=== PATIENT | male | born 1940 | race Caucasian/White ===

== ENCOUNTER 2022-08-03 08:03 | Day surgery (SDC) | payer MEDICARE ==
[~2022-08-03] VITALS: Ht 185.4 cm; Wt 94.6 kg
[~2022-08-03 08:03] MED LIST: AMLO5 PO; ASPI325 PO; OMEP10ER; OMEPRAZOLE MAGN20 MG PO; Pravastatin Sod80 MG PO; TAMS.4ER PO; TIMO.5OPSO BOTHEYES; Valium5 MG PO; [UNRECOGNIZED DRUG - OTHER]
[2022-08-03] MEDS ORDERED: CALC.25 (09:14)
[2022-08-03] MEDS ORDERED: THERA-D2000 UNIT (09:14)
[2022-08-03] MEDS ORDERED: IRBE150 (09:14)
[2022-08-03] MEDS ORDERED: TIMDOROPSO (09:14)
[2022-08-03] MEDS ORDERED: Crestor40 MG (09:15)
[2022-08-03] MEDS ORDERED: PANT20 (09:15)
[2022-08-03] MEDS ORDERED: LATA.005SO (09:15)
[2022-08-03] MEDS ORDERED: TAMS.4ER (09:18)
[2022-08-03] MEDS ORDERED: CLOP75 (09:19)
== END 2022-08-03 11:25 | disposition home or self-care (01) ==
LOC: ORSCSDS 08:03
PROVIDERS: Internal Medicine Gastroenterology
PROC: 0DBK8ZX Excision of Ascending Colon, Via Natural or Artificial Opening Endoscopic, Diagnostic (ICD-10-PCS; principal; 2022-08-03 09:30)
PROC: 0DBL8ZX Excision of Transverse Colon, Via Natural or Artificial Opening Endoscopic, Diagnostic (ICD-10-PCS; principal; 2022-08-03 09:30)
DX: Z12.11 Encounter for screening for malignant neoplasm of colon (principal); D12.2 Benign neoplasm of ascending colon; D12.3 Benign neoplasm of transverse colon; K64.8 Other hemorrhoids; Z86.010 Personal history of colon polyps; Z80.0 Family history of malignant neoplasm of digestive organs; Z83.71 Family history of colonic polyps; K21.9 Gastro-esophageal reflux disease without esophagitis; I25.10 Atherosclerotic heart disease of native coronary artery without angina pectoris; Z86.73 Personal history of transient ischemic attack (TIA), and cerebral infarction without residual deficits; Z79.82 Long term (current) use of aspirin; Z79.02 Long term (current) use of antithrombotics/antiplatelets; Z79.899 Other long term (current) drug therapy; Z87.891 Personal history of nicotine dependence
CPT/HCPCS: 88305; J2704; J7120

== ENCOUNTER → 2022-09-04 | Outpatient (CLI) | payer MEDICARE ==
[~2022-09-04] MED LIST changes: +CALC.25; +CLOP75; +Crestor40 MG; +IRBE150; +LATA.005SO; +PANT20; +TAMS.4ER; +THERA-D2000 UNIT; +TIMDOROPSO
[2022-09-04 14:29] LABS: CHOL/HDL RATIO 2.3; Cholesterol 110 mg/dL (50-200); HDL Cholesterol 48 mg/dL (>39); Low Density Lipoprotein Chol 46 mg/dL (0-110); Triglycerides 79 mg/dL (30-160); Very Low Density Lipoprot Chol 15 mg/dL (6-32)
== END | disposition home or self-care (01) ==
LOC: LAB SHORT 10:45 → LAB 10:45
PROVIDERS: Family Medicine
DX: E78.49 Other hyperlipidemia (principal)
CPT/HCPCS: 80061

== ENCOUNTER 2023-07-31 09:07 | Day surgery (SDC) | payer MEDICARE ==
[~2023-07-31] VITALS: Ht 182.9 cm; Wt 94.0 kg
[2023-07-31] VITALS (8 sets, daily range): BP systolic 152–168; BP diastolic 63–97
[~2023-07-31 09:07] MED LIST changes: +Amlodipine Bes2.5 MG PO; -CALC.25; +CALC.25 PO; -CLOP75; +CLOP75 PO; -Crestor40 MG; +Crestor40 MG PO; +FAMO40 PO; -IRBE150; +IRBE150 PO; +LATA.005SO BOTHEYES; +LOKELMA10 GM PO; -PANT20; +PANT20 PO; -TAMS.4ER; -THERA-D2000 UNIT; +THERA-D2000 UNIT PO; -TIMDOROPSO; +TIMDOROPSO BOTHEYES
[2023-07-31] MEDS ORDERED: NS 2,000 ML IV ONE (09:38)
[2023-07-31] MEDS ORDERED: NS 500 ML IV ONE (09:40)
[2023-07-31] MEDS ORDERED: Midazolam HCl 1MG / ML 2ML Vial ONE ×2 (09:51→10:45)
[2023-07-31] MEDS ORDERED: NS 1,000 ML IV ONE (09:51)
[2023-07-31] MEDS ORDERED: FentaNYL Citrate 50 MCG/ML 2 ML Injection ONE ×2 (09:51→10:54)
[2023-07-31] MEDS ORDERED: CeFAZolin Sodium 2,000 MG VIAL ONE (10:56)
[2023-07-31] MEDS ORDERED: NS 100 ML IV ONE (10:58)
--- NOTE | 2023-07-31 12:02 | NUR ---
PT BACK TO RECOVERY ROOM VIA BED AFTER PROCEDURE. AWAKE AND ALERT, DENIES PAIN OR DISCOMFORT. PD CATH SITE CLEAN AND DRY, NO ACTIVE BLEEDING OR SWELLING. AT BEDSIDE, CALL LIGHT IN REACH.
--- NOTE | 2023-07-31 12:25 | NUR ---
DR CISNEROS AT BEDSIDE SPEAKING WITH PT AND SPOUSE ABOUT PROCEDURE RESULTS AND PLAN FOR FOLLOW UP CARE.
--- NOTE | 2023-07-31 12:40 | NUR ---
IV DC'D, CATH INTACT. PT AND SPOUSE VERBALIZED UNDERSTANDING OF DC INSTRUCTIONS AND FOLLOW UP INFO. PT OUT TO CAR VIA WHEELCHAIR, SPOUSE IS DRIVING PT HOME.
== END 2023-07-31 12:40 | disposition home or self-care (01) ==
LOC: MHTC 09:07
DX: T85.611A Breakdown (mechanical) of intraperitoneal dialysis catheter, initial encounter (principal); N18.6 End stage renal disease; I25.10 Atherosclerotic heart disease of native coronary artery without angina pectoris; Z86.73 Personal history of transient ischemic attack (TIA), and cerebral infarction without residual deficits; E78.5 Hyperlipidemia, unspecified; Z87.891 Personal history of nicotine dependence
CPT/HCPCS: 49418; 99152; 99153; C1750; C1769; C1887; C1894; J0690; J2250; J3010; J7030; J7040; Q9967

== ENCOUNTER 2023-09-20 08:20 | Day surgery (SDC) | payer MEDICARE ==
[~2023-09-20] VITALS: Ht 182.9 cm; Wt 90.7 kg
[~2023-09-20 08:20] MED LIST changes: +FLUO10 PO; +ONDA4ODT MM
[2023-09-20 08:49] VITALS: BP 134/102
[2023-09-20 08:50] VITALS: BP 161/90
[2023-09-20] MEDS ORDERED: Heparin Sodium 1000 Units/ML 10ML MDV ONE (10:24)
[2023-09-20] MEDS ORDERED: NS 1,000 ML IV ONE (10:24)
[2023-09-20] MEDS ORDERED: Heparin Sodium 10,000 Units/ML 1ML MDV ONE (10:24)
[2023-09-20] MEDS ORDERED: NS 250 ML IV ONE (10:25)
[2023-09-20] MEDS ORDERED: Midazolam HCl 1MG / ML 2ML Vial ONE ×2 (10:46→11:23)
[2023-09-20] MEDS ORDERED: FentaNYL Citrate 50 MCG/ML 2 ML Injection ONE ×2 (10:47→11:23)
[2023-09-20] MEDS ORDERED: Ondansetron HCl 2 MG / ML 2ML Vial ONE (10:54)
[2023-09-20] MEDS ORDERED: NS 100 ML IV ONE (11:17)
[2023-09-20] MEDS ORDERED: CeFAZolin Sodium 2,000 MG VIAL ONE (11:17)
[2023-09-20 12:15] VITALS: BP 151/86
--- NOTE | 2023-09-20 12:30 | NUR ---
PT AND VERBALIZED UNDERSTANDING OF WRITTEN AND VERBAL D/C INST. ABD DRSG AND R UPPER CHEST DRSG CDI. IV REMOVED. PT AMB TO THE BATHROOM /C SBA. TOLERATED WELL. PT TAKEN OUT OF THE HRT CENTER VIA W/C.
== END 2023-09-20 12:30 | disposition home or self-care (01) ==
LOC: MHTC 08:20
DX: T85.611D Breakdown (mechanical) of intraperitoneal dialysis catheter, subsequent encounter (principal); Y71.8 Miscellaneous cardiovascular devices associated with adverse incidents, not elsewhere classified; N18.6 End stage renal disease; R10.9 Unspecified abdominal pain; I25.10 Atherosclerotic heart disease of native coronary artery without angina pectoris; E78.5 Hyperlipidemia, unspecified; Z88.5 Allergy status to narcotic agent; Z88.8 Allergy status to other drugs, medicaments and biological substances; Z79.02 Long term (current) use of antithrombotics/antiplatelets; Z79.899 Other long term (current) drug therapy
CPT/HCPCS: 36561; 49422; 76937; 99152; 99153; C1750; C1769; C1894; J0690; J1644; J2250; J2405; J3010; J7030; J7050

== ENCOUNTER 2024-06-25 20:09 | Emergency (ER) | payer MEDICARE ==
[~2024-06-25] VITALS: Ht 185.4 cm; Wt 88.5 kg
[2024-06-25 20:40] LABS: BASOPHILS ABSOLUTE AUTO 0.06 K/mm3 (0.00-0.23); BASOPHILS PERCENT AUTO 1 % (0-2); EOSINOPHILS ABSOLUTE AUTO 0.07 K/mm3 (0.00-0.68); EOSINOPHILS PERCENT AUTO 1 % (0-6); Hematocrit 31.4 % (37.0-53.0); Hemoglobin 10.3 g/dL (13.5-17.5); IMMATURE GRAN ABSOLUTE AUTO 0.05 K/mm3 (0.00-0.10); IMMATURE GRAN PERCENT AUTO 1 % (0-1); LYMPHOCYTES ABSOLUTE AUTO 0.83 K/mm3 (0.84-5.20); LYMPHOCYTES PERCENT AUTO 10 % (21-46); MONOCYTES PERCENT AUTO 10 % (4-13); Mean Corpuscular HGB 30.7 pg (26.0-34.0); Mean Corpuscular HGB Conc 32.8 g/dL (31.5-36.5); Mean Corpuscular Volume 94 fL (80-100); Mean Platelet Volume 9.4 fL (9.1-12.4); NEUTROPHILS ABSOLUTE AUTO 6.52 K/mm3 (1.96-9.15); NEUTROPHILS PERCENT AUTO 78 % (41-73); Platelet Count 212 K/mm3 (150-400); RDW Coefficient Variation 13.2 % (11.7-14.2); RDW Standard Deviation 45.3 fL (35.1-46.3); Red Blood Cell Count 3.36 M/mm3 (4.30-5.90); White Blood Cell Count 8.33 K/mm3 (4.00-11.30)
[2024-06-25 21:04] LABS: Albumin, Blood 3.5 g/dL (3.4-5.0); Albumin/Globulin Ratio 0.6 (0.8-1.8); Bilirubin, Total 0.5 mg/dL (0.1-1.0); Bun/Creatinine Ratio 4.9 (12.0-20.0); Calcium, Blood 9.9 mg/dL (8.5-10.1); Creatinine, Blood 5.06 mg/dL (0.60-1.20); Globulin, Blood 5.4 g/dL (2.2-4.0); Magnesium, Blood 2.2 mg/dL (1.6-2.4); Potassium, Blood 3.2 mmol/L (3.5-5.5); Total Protein, Blood 8.9 g/dL (6.4-8.2)
[2024-06-25] MEDS ORDERED: Metoclopramide HCl 5MG / ML 2ML Vial IV ONE (21:10)
[2024-06-25 22:02] LABS: CORONAVIRUS COVID-19 AG Negative (NEGATIVE); INFLUENZA A AG Negative (NEGATIVE); INFLUENZA B AG Negative (NEGATIVE)
[2024-06-25 23:45] VITALS: BP 145/87
== END 2024-06-26 00:08 | disposition home or self-care (01) ==
LOC: ER 20:09
PROVIDERS: Student in an Organized Health Care Education/Training Program
DX: N18.6 End stage renal disease (principal); R07.89 Other chest pain; K21.9 Gastro-esophageal reflux disease without esophagitis; Z87.891 Personal history of nicotine dependence; Z86.73 Personal history of transient ischemic attack (TIA), and cerebral infarction without residual deficits; Z79.02 Long term (current) use of antithrombotics/antiplatelets; Z79.899 Other long term (current) drug therapy; Z88.5 Allergy status to narcotic agent; Z88.8 Allergy status to other drugs, medicaments and biological substances
CPT/HCPCS: 71045; 80053; 83735; 84484; 85025; 87428-QW; 93005; 93010; 96374; 99285-25; J2765

== ENCOUNTER → 2024-09-30 | Outpatient (CLI) | payer MEDICARE ==
[2024-09-30 14:41] LABS: CHOL/HDL RATIO 3.3; Cholesterol 137 mg/dL (50-200); HDL Cholesterol 42 mg/dL (>39); LDL/HDL RATIO 1.7; Low Density Lipoprotein Chol 72 mg/dL (0-110); Triglycerides 114 mg/dL (30-160); Very Low Density Lipoprot Chol 22 mg/dL (6-32)
== END | disposition home or self-care (01) ==
LOC: LAB SHORT 13:05 → LAB 13:05
PROVIDERS: Family Medicine
DX: I10 Essential (primary) hypertension (principal)
CPT/HCPCS: 80061

== ENCOUNTER 2024-12-05 11:35 | Emergency (ER) | payer MEDICARE ==
[~2024-12-05] VITALS: Ht 185.4 cm; Wt 88.0 kg
[2024-12-05 12:18] LABS: BASOPHILS ABSOLUTE AUTO 0.06 K/mm3 (0.00-0.23); BASOPHILS PERCENT AUTO 1 % (0-2); EOSINOPHILS ABSOLUTE AUTO 0.11 K/mm3 (0.00-0.68); EOSINOPHILS PERCENT AUTO 3 % (0-6); Hematocrit 30.9 % (37.0-53.0); Hemoglobin 9.6 g/dL (13.5-17.5); IMMATURE GRAN ABSOLUTE AUTO 0.02 K/mm3 (0.00-0.10); IMMATURE GRAN PERCENT AUTO 1 % (0-1); LYMPHOCYTES PERCENT AUTO 25 % (21-46); MONOCYTES ABSOLUTE AUTO 0.53 K/mm3 (0.16-1.47); MONOCYTES PERCENT AUTO 12 % (4-13); Mean Corpuscular HGB 29.2 pg (26.0-34.0); Mean Corpuscular HGB Conc 31.1 g/dL (31.5-36.5); Mean Corpuscular Volume 94 fL (80-100); Mean Platelet Volume 9.7 fL (9.1-12.4); NEUTROPHILS ABSOLUTE AUTO 2.62 K/mm3 (1.96-9.15); NEUTROPHILS PERCENT AUTO 59 % (41-73); Platelet Count 231 K/mm3 (150-400); RDW Coefficient Variation 15.2 % (11.7-14.2); RDW Standard Deviation 51.9 fL (35.1-46.3); Red Blood Cell Count 3.29 M/mm3 (4.30-5.90); White Blood Cell Count 4.44 K/mm3 (4.00-11.30)
[2024-12-05 13:01] LABS: Albumin, Blood 3.5 g/dL (3.4-5.0); Albumin/Globulin Ratio 0.7 (0.8-1.8); Bilirubin, Total 0.3 mg/dL (0.1-1.0); Bun/Creatinine Ratio 4.2 (12.0-20.0); Calcium, Blood 9.5 mg/dL (8.5-10.1); Creatinine, Blood 9.87 mg/dL (0.60-1.20); Globulin, Blood 4.8 g/dL (2.2-4.0); Potassium, Blood 4.2 mmol/L (3.5-5.5); Total Protein, Blood 8.3 g/dL (6.4-8.2)
[2024-12-05] MEDS ORDERED: MIDO5 PO (14:51)
[2024-12-05] MEDS ORDERED: ALBU8HFA2 INH (14:51)
[2024-12-05 16:00] VITALS: BP 154/96
[2024-12-05] MEDS ORDERED: LAVAP4L PO (16:53)
[2024-12-05] MEDS ORDERED: MAGCIT300 PO (16:53)
[2024-12-05] MEDS ORDERED: ADULT GLYCERIN1 EACH PR (16:53)
== END 2024-12-05 17:00 | disposition home or self-care (01) ==
LOC: ER 11:35
PROVIDERS: Student in an Organized Health Care Education/Training Program
DX: K59.00 Constipation, unspecified (principal); N18.6 End stage renal disease; Z88.8 Allergy status to other drugs, medicaments and biological substances; Z88.5 Allergy status to narcotic agent; Z79.899 Other long term (current) drug therapy; Z79.2 Long term (current) use of antibiotics; K21.9 Gastro-esophageal reflux disease without esophagitis; Z87.891 Personal history of nicotine dependence
CPT/HCPCS: 74177; 80053; 83690; 85025; 99284-25; Q9967

== ENCOUNTER 2025-01-06 11:08 | Day surgery (SDC) | payer MEDICARE ==
[2025-01-06] VITALS (10 sets, daily range): BP systolic 109–144; BP diastolic 81–108
[~2025-01-06] VITALS: Ht 185.4 cm; Wt 87.1 kg
[~2025-01-06 11:08] MED LIST changes: +ADULT GLYCERIN1 EACH PR; +ALBU8HFA2 INH; +COMPAZINE10 MG PO; +LAVAP4L PO; +MAGCIT300 PO; +MIDO5 PO; +PANT40 PO; +ROPI1 PO; +VITAMIN B COMP1 EAC1 PO
[2025-01-06] MEDS ORDERED: NS 1,000 ML IV ONE ×2 (11:27→11:42)
[2025-01-06] MEDS ORDERED: MIDO5 PO (11:39)
[2025-01-06] MEDS ORDERED: Heparin Sodium 1000 Units/ML 10ML MDV ONE ×2 (11:42→13:34)
[2025-01-06] MEDS ORDERED: FentaNYL Citrate 50 MCG/ML 2 ML Injection ONE (11:55)
[2025-01-06] MEDS ORDERED: Midazolam HCl 1MG / ML 2ML Vial ONE (11:55)
[2025-01-06] MEDS ORDERED: Ondansetron HCl 2 MG / ML 2ML Vial ONE (12:02)
[2025-01-06] MEDS ORDERED: Nitroglycerin 2 MG/20 ML BTL ONE (13:20)
--- NOTE | 2025-01-06 15:16 | NUR ---
2 cc air released from tr band om l wrist. no bleeding noted
--- NOTE | 2025-01-06 15:24 | NUR ---
all remaining air is now out of tr band, no bleeding or hematoma noted.
--- NOTE | 2025-01-06 15:40 | NUR ---
pt sitting up eating sandwhich at this time. denies any c/o's.
--- NOTE | 2025-01-06 16:04 | NUR ---
tr band off, site cleansed and cloth dot placed. Armboard applied to left wrist as reminder not to use it.
--- NOTE | 2025-01-06 16:28 | NUR ---
Pt discharge instructions went over with pt and son, both verbalize understanding of instructions. saline lock removed with catheter intact, pressure dressing applied. pt to priavte vehicle per w/c in care of son.
== END 2025-01-06 16:26 | disposition home or self-care (01) ==
LOC: MHTC 11:08
DX: N18.6 End stage renal disease (principal); T82.858A Stenosis of other vascular prosthetic devices, implants and grafts, initial encounter; I25.10 Atherosclerotic heart disease of native coronary artery without angina pectoris; I25.83 Coronary atherosclerosis due to lipid rich plaque; E78.5 Hyperlipidemia, unspecified; Z86.73 Personal history of transient ischemic attack (TIA), and cerebral infarction without residual deficits; Z87.891 Personal history of nicotine dependence; Z79.02 Long term (current) use of antithrombotics/antiplatelets; Z79.899 Other long term (current) drug therapy; Z88.5 Allergy status to narcotic agent; Z88.8 Allergy status to other drugs, medicaments and biological substances; Z99.2 Dependence on renal dialysis; Y83.2 Surgical operation with anastomosis, bypass or graft as the cause of abnormal reaction of the patient, or of later complication, without mention of misadventure at the time of the procedure
CPT/HCPCS: 76937; 93005; 93010; 99152; 99153; C1725; C1769; C1894; J1644; J2250; J2405; J3010; J7030; Q9967

== ENCOUNTER 2025-01-20 12:05 | Emergency (ER) | payer MEDICARE ==
[~2025-01-20] VITALS: Ht 185.4 cm; Wt 88.0 kg
[2025-01-20 13:40] LABS: BASOPHILS ABSOLUTE AUTO 0.04 K/mm3 (0.00-0.23); BASOPHILS PERCENT AUTO 1 % (0-2); EOSINOPHILS ABSOLUTE AUTO 0.08 K/mm3 (0.00-0.68); EOSINOPHILS PERCENT AUTO 2 % (0-6); Hematocrit 35.1 % (37.0-53.0); Hemoglobin 10.7 g/dL (13.5-17.5); IMMATURE GRAN ABSOLUTE AUTO 0.01 K/mm3 (0.00-0.10); IMMATURE GRAN PERCENT AUTO 0 % (0-1); LYMPHOCYTES ABSOLUTE AUTO 0.91 K/mm3 (0.84-5.20); LYMPHOCYTES PERCENT AUTO 19 % (21-46); MONOCYTES ABSOLUTE AUTO 0.65 K/mm3 (0.16-1.47); MONOCYTES PERCENT AUTO 13 % (4-13); Mean Corpuscular HGB Conc 30.5 g/dL (31.5-36.5); Mean Corpuscular Volume 93 fL (80-100); NEUTROPHILS ABSOLUTE AUTO 3.16 K/mm3 (1.96-9.15); NEUTROPHILS PERCENT AUTO 65 % (41-73); NRBC ABSOLUTE 0.00 K/mm3 (0.00-0.02); NRBC Auto 0.0 /100 WBC (0.0-0.2); Platelet Count 206 K/mm3 (150-400); RDW Coefficient Variation 15.9 % (11.7-14.2); RDW Standard Deviation 54.0 fL (35.1-46.3)
[2025-01-20 13:50] LABS: Prothrombin Time Results 12.1 Sec (9.7-11.5)
[2025-01-20 14:16] LABS: Alanine Aminotransfer (ALT/SGP 37.0 U/L (12-78); Albumin, Blood 3.3 g/dL (3.4-5.0); Albumin/Globulin Ratio 0.7 (0.8-1.8); Anion Gap 10.0 mmol/L (3-11); Aspartate Aminotrans (AST/SGOT 23.0 U/L (12-37); Bilirubin, Total 0.3 mg/dL (0.1-1.0); Blood Urea Nitrogen 48.0 mg/dL (8-24); CO2, Blood 28.0 mmol/L (21-32); Calcium, Blood 9.1 mg/dL (8.5-10.1); Chloride, Blood 104.0 mmol/L (98-108); Creatinine, Blood 10.7 mg/dL (0.60-1.20); Globulin, Blood 4.9 g/dL (2.2-4.0); Glucose, Blood 122.0 mg/dL (70-99); Potassium, Blood 5.0 mmol/L (3.5-5.5); Sodium, Blood 137.0 mmol/L (136-145); Total Protein, Blood 8.2 g/dL (6.4-8.2)
[2025-01-20] MEDS ORDERED: Heparin Sodium 1000 Units/ML 10ML MDV ONE (15:04)
[2025-01-20] MEDS ORDERED: NS 250 ML IV ONE (15:04)
[2025-01-20] MEDS ORDERED: NS 500 ML IV ONE (15:05)
[2025-01-20] MEDS ORDERED: Ondansetron HCl 2 MG / ML 2ML Vial ONE ×2 (15:32→16:26)
[2025-01-20] MEDS ORDERED: Midazolam HCl 1MG / ML 2ML Vial ONE (15:38)
[2025-01-20] MEDS ORDERED: FentaNYL Citrate 50 MCG/ML 2 ML Injection ONE (15:38)
[2025-01-20] MEDS ORDERED: Heparin Sodium 10,000 Units/ML 1ML MDV ONE (15:56)
[2025-01-20 16:27] VITALS: BP 131/82
[2025-01-20 16:30] VITALS: BP 130/89
--- NOTE | 2025-01-20 16:30 | NUR ---
PT TO RECOVERY FROM LAB. PT CO NAUSEA. PT GIVEN 4MG ZOFRAN BY ALEJANDRO CALERO. PT REPORTS FEELING BETTER AT THIS TIME. PERM CATH SITE SOFT AND NON-TENDER PER PT. NO BLEEDING/HEMATOMA NOTED.
--- NOTE | 2025-01-20 16:56 | NUR ---
pt and sister given dc instructions and verbalized understanding. iv out. pt changed. permcath site soft and non-tender per pt. no bleeding/hematoma noted. pt taken to [facility] via wc where sister will take pt home. pt denies anymore nausea at this time.
== END 2025-01-20 15:31 | disposition other institution (70) ==
LOC: ER 12:05
PROVIDERS: Student in an Organized Health Care Education/Training Program
DX: T82.590A Other mechanical complication of surgically created arteriovenous fistula, initial encounter (principal); Y83.8 Other surgical procedures as the cause of abnormal reaction of the patient, or of later complication, without mention of misadventure at the time of the procedure; N18.6 End stage renal disease; K21.9 Gastro-esophageal reflux disease without esophagitis; Z87.891 Personal history of nicotine dependence; Z88.8 Allergy status to other drugs, medicaments and biological substances; Z88.5 Allergy status to narcotic agent; Z79.899 Other long term (current) drug therapy
CPT/HCPCS: 76937; 80053; 85025; 85610; 85730; 99284; C1750; C1769; C1894; J1644; J2250; J2405; J3010; J7040; J7050

== ENCOUNTER 2025-04-06 21:05 | Inpatient (IN) | payer MEDICARE ==
[~2025-04-06] VITALS: Ht 185.4 cm; Wt 76.3 kg
[2025-04-06 23:40] LABS: BASOPHILS ABSOLUTE AUTO 0.01 K/mm3 (0.00-0.23); BASOPHILS PERCENT AUTO 0 % (0-2); EOSINOPHILS ABSOLUTE AUTO 0.03 K/mm3 (0.00-0.68); EOSINOPHILS PERCENT AUTO 1 % (0-6); Hematocrit 29.7 % (37.0-53.0); Hemoglobin 9.4 g/dL (13.5-17.5); IMMATURE GRAN ABSOLUTE AUTO 0.03 K/mm3 (0.00-0.10); IMMATURE GRAN PERCENT AUTO 1 % (0-1); LYMPHOCYTES ABSOLUTE AUTO 0.30 K/mm3 (0.84-5.20); LYMPHOCYTES PERCENT AUTO 5 % (21-46); MONOCYTES ABSOLUTE AUTO 0.83 K/mm3 (0.16-1.47); MONOCYTES PERCENT AUTO 14 % (4-13); Mean Corpuscular HGB Conc 31.6 g/dL (31.5-36.5); Mean Corpuscular Volume 90 fL (80-100); NEUTROPHILS ABSOLUTE AUTO 4.70 K/mm3 (1.96-9.15); NEUTROPHILS PERCENT AUTO 80 % (41-73); NRBC ABSOLUTE 0.00 K/mm3 (0.00-0.02); NRBC Auto 0.0 /100 WBC (0.0-0.2); Platelet Count 162 K/mm3 (150-400); RDW Coefficient Variation 17.3 % (11.7-14.2); RDW Standard Deviation 57.9 fL (35.1-46.3)
[2025-04-06 23:58] LABS: Alanine Aminotransfer (ALT/SGP 217.0 U/L (12-78); Albumin, Blood 2.8 g/dL (3.4-5.0); Albumin/Globulin Ratio 0.6 (0.8-1.8); Anion Gap 11.0 mmol/L (3-11); Aspartate Aminotrans (AST/SGOT 258.0 U/L (12-37); Bilirubin, Total 1.0 mg/dL (0.1-1.0); Blood Urea Nitrogen 29.0 mg/dL (8-24); CO2, Blood 33.0 mmol/L (21-32); Calcium, Blood 9.7 mg/dL (8.5-10.1); Chloride, Blood 95.0 mmol/L (98-108); Creatinine, Blood 5.49 mg/dL (0.60-1.20); Globulin, Blood 5.0 g/dL (2.2-4.0); Glucose, Blood 118.0 mg/dL (70-99); Potassium, Blood 3.6 mmol/L (3.5-5.5); Sodium, Blood 135.0 mmol/L (136-145); Total Protein, Blood 7.8 g/dL (6.4-8.2)
[2025-04-07] MEDS ORDERED: FLU VACC TS2025(65UP)/MF59C/PF 45 MCG/0.5 ML SYRINGE IM SCH (01:05)
[2025-04-07] MEDS ORDERED: Ondansetron HCl 2 MG / ML 2ML Vial IV PRN (01:05)
[2025-04-07] MEDS ORDERED: CefTRIAXone Sodium 1,000 MG in NS 100 ML IV SCH (01:30)
[2025-04-07] MEDS ORDERED: FAMO40 PO (01:41)
[2025-04-07] MEDS ORDERED: ELIQUIS2.5 MG PO (01:42)
[2025-04-07] MEDS ORDERED: Amiodarone HCl200 MG PO (01:42)
[2025-04-07] MEDS ORDERED: Crestor40 MG PO (01:42)
[2025-04-07] MEDS ORDERED: Ropinirole HCl0.5 MG PO (01:43)
[2025-04-07] MEDS ORDERED: TRAZ50 PO (01:44)
[2025-04-07 04:50] LABS: Anti-Xa UFH, PHA Monitoring >1.50 IU/mL; Prothrombin Time Results 13.9 Sec (9.7-11.5)
[2025-04-07 04:57] LABS: Alanine Aminotransfer (ALT/SGP 197.0 U/L (12-78); Albumin, Blood 2.4 g/dL (3.4-5.0); Albumin/Globulin Ratio 0.5 (0.8-1.8); Anion Gap 10.0 mmol/L (3-11); Aspartate Aminotrans (AST/SGOT 237.0 U/L (12-37); Bilirubin, Total 0.8 mg/dL (0.1-1.0); Blood Urea Nitrogen 31.0 mg/dL (8-24); CO2, Blood 31.0 mmol/L (21-32); Calcium, Blood 8.8 mg/dL (8.5-10.1); Chloride, Blood 98.0 mmol/L (98-108); Creatinine, Blood 5.87 mg/dL (0.60-1.20); Globulin, Blood 4.6 g/dL (2.2-4.0); Glucose, Blood 101.0 mg/dL (70-99); Magnesium, Blood 2.1 mg/dL (1.6-2.4); Potassium, Blood 3.6 mmol/L (3.5-5.5); Sodium, Blood 135.0 mmol/L (136-145); Total Protein, Blood 7.0 g/dL (6.4-8.2)
[2025-04-07] MEDS ORDERED: Dose Adjust by Pharmacy XX STA ×2 (05:07→12:55)
[2025-04-07] MEDS ORDERED: Heparin Sodium,Porcine/0.5 NS 500 ML IV SCH (05:10)
[2025-04-07 06:06] LABS: BASOPHILS ABSOLUTE AUTO 0.03 K/mm3 (0.00-0.23); BASOPHILS PERCENT AUTO 1 % (0-2); EOSINOPHILS ABSOLUTE AUTO 0.06 K/mm3 (0.00-0.68); EOSINOPHILS PERCENT AUTO 1 % (0-6); Hematocrit 26.1 % (37.0-53.0); Hemoglobin 8.2 g/dL (13.5-17.5); IMMATURE GRAN ABSOLUTE AUTO 0.03 K/mm3 (0.00-0.10); IMMATURE GRAN PERCENT AUTO 1 % (0-1); LYMPHOCYTES ABSOLUTE AUTO 0.60 K/mm3 (0.84-5.20); LYMPHOCYTES PERCENT AUTO 12 % (21-46); MONOCYTES ABSOLUTE AUTO 1.00 K/mm3 (0.16-1.47); MONOCYTES PERCENT AUTO 19 % (4-13); Mean Corpuscular HGB Conc 31.4 g/dL (31.5-36.5); Mean Corpuscular Volume 93 fL (80-100); NEUTROPHILS ABSOLUTE AUTO 3.51 K/mm3 (1.96-9.15); NEUTROPHILS PERCENT AUTO 67 % (41-73); NRBC ABSOLUTE 0.00 K/mm3 (0.00-0.02); NRBC Auto 0.0 /100 WBC (0.0-0.2); Platelet Count 143 K/mm3 (150-400); RDW Coefficient Variation 17.6 % (11.7-14.2); RDW Standard Deviation 60.1 fL (35.1-46.3)
[2025-04-07 08:48] VITALS: BP 129/83
--- NOTE | 2025-04-07 10:05 | NUR ---
ASSUMPTION OF CARE: PT CAME TO PCU VIA W/C AT APPROX 0815 FROM ED. PT ALERT TO SELF, COOPERATIVE WITH CARE. GAVE PT BEDBATH WITH DOPE AND FABRIC WORKER, TOOK PHOTOS OF WOUNDS AND PLACED IN CHART. PT CONNECTED TO [employer] TO SUCTION. PT CURRENTLY LYNG IN BED, BED ALARM ON, CALL IN REACH.
[2025-04-07] MEDS ORDERED: Darbepoetin (Pharmacy Consult) SC SCH (11:30)
--- NOTE | 2025-04-07 11:58 | NUR ---
UPDATE: PTs DAUGHTER CALLED, UPDATED DAUGHTER OVER PHONE. SHE WILL BE COMING IN LATER TODAY TO SEE PT.
[2025-04-07 12:29] VITALS: BP 126/67
--- NOTE | 2025-04-07 14:46 | NUR ---
Spiritual Care Visit. At the request of friends of Pt. 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 Pt. welcomed my visit. After introductions a life review was facilitated. Pt. verbalized that he recently lost his . Listened with empathetic pastoral care and words of bereavement are shared. Pts. daughter and granddaughter are at bedside. Matters of taras and belief are considered and family requested to know this mining analyst's taras background. Prayed with the family and Pt. Pt. verbalized gratitude fo rthe spiritual care visit.
[2025-04-07 14:54] VITALS: BP 109/65
--- NOTE | 2025-04-07 15:00 | NUR ---
Assisted up from bed to chair to eat a late lunch. Gait belt and gerilwalker in use; pt required minimal assistance to get up. Followed directions well. He appears to have a good appetite and no observable difficulty eating solid food and drinking thin liquids.
[2025-04-07] MEDS ORDERED: Darbepoetin Alfa In Albumn Sol 40 MCG/0.4 ML SC SCH (16:00)
--- NOTE | 2025-04-07 16:56 | NUR ---
SHIFT SUMMARY: PT ALERT TO SELF, ABLE TO FOLLOW COMMANDS. UNABLE TO STATE CURRENT LOCATION OR THE DATE. BED ALARM ON FOR SAFETY. SBA TO CHAIR TODAY DUE TO UNSTEADINESS ON FEET, TOLERATED WELL. PT ABLE TO WORK WITH PHYSICAL THERAPY TODAY WELL. ROOM AIR, SATS >95%. DENIES SOB. PT REQUIRED 1-2L O2 WHILE ASLEEP THIS MORNING. PT NSR 60-70s, DENIES CHEST PAIN/PRESSURE. OTHER VSS. R SIDE PERMACATH C/D/I. LAST DIALYSIS WAS 04/06, CAME TO BEDSIDE THIS MORNING AND DISCUSSED DIALYSIS FOR TOMORROW 04/08. PUREWICK TO SUCTION, NO URINE OUTPUT THIS SHIFT SO FAR. PT RECIEVED A BEDBATH TODAY. 1000ML FLUID RESTRICTION IN PLACE, PT TOLERATING MEALS WELL. DAUGHTER AT BEDSIDE TODAY, PALLIATIVE ABLE TO CME DOWN AND SPEAK TO DAUGHTER REGARDING PLANS AFTER D/C. PT CURRENTLY LYING IN BED, BED ALARM ON, CALL WITHIN REACH.
[2025-04-07 20:41] VITALS: BP 101/70
[2025-04-08] VITALS (19 sets, daily range): BP systolic 108–1156; BP diastolic 54–85
[2025-04-08 01:59] LABS: Hematocrit 26.7 % (37.0-53.0); Hemoglobin 8.5 g/dL (13.5-17.5)
[2025-04-08 02:11] LABS: Albumin, Blood 2.4 g/dL (3.4-5.0); Anion Gap 10 mmol/L (3-11); Blood Urea Nitrogen 47 mg/dL (8-24); CO2, Blood 35 mmol/L (21-32); Calcium, Blood 9.1 mg/dL (8.5-10.1); Chloride, Blood 97 mmol/L (98-108); Creatinine, Blood 7.43 mg/dL (0.60-1.20); Glucose, Blood 108 mg/dL (70-99); Magnesium, Blood 2.3 mg/dL (1.6-2.4); Phosphorus, Blood 5.3 mg/dL (2.5-4.9); Potassium, Blood 4.0 mmol/L (3.5-5.5); Sodium, Blood 138 mmol/L (136-145)
[2025-04-08] MEDS ORDERED: Dose Adjust by Pharmacy XX STA ×3 (02:55→16:46)
--- NOTE | 2025-04-08 07:43 | NUR ---
ASSUMPTION NOTE: THIS RN TO ASSUME CARE OF PATIENT. PATIENT IS AWAKE AND IS ALERT AND ORIENTED X2 TO SELF & DAUGHTER. PAIENT ORIENTED TO BEING IN THE HOSPITAL AND WHAT BROUGHT HIM HERE. PATIENT BEING SAT UP FOR BREAKFAST,CALL LIGHT WITHIN REACH, BED IN LOWET POSITON & CALL LIGHT WITHIN REACH.
[2025-04-08 08:46] LABS: Ferritin, Serum 3565.0 ng/mL (26-388); Total Iron Binding Capacity 142.0 ug/dL (250-450)
--- NOTE | 2025-04-08 09:10 | NUR ---
MD ROUNDED: MD ROUNDED AND PATIENT IS GETTING READY TO HEAD DOWN TO DIALYSIS. PATIENT AWARE WE ARE WAITING RESULTS OF ECHO AND MD CALLED HIS DAUGHTER IN THE ROOM. PLAN CONTINUES TO REDUCE FLUIDS AND AWAITING ECHO RESULTS.
--- NOTE | 2025-04-08 13:35 | NUR ---
EXCELLENCE CONSULTANT ROUNDED: EXCELLENCE CONSULTANT ROUNDED AND SPOKE WITH DAUGHTER WHO IS GREAT HISTORIAN AND WAS ABLE TO TELL HIM WHAT HAPPENED AT [facility] WE WERE WAITING FOR PAPERWORK TO BE FAXED OVER. PLAN WILL BE TO MEDICALLY MANAGE WITH THE MEDCIATIONS THEY DISCHARGE HIM ON AT [facility] PREVIOUSLY AND POSSIBLE DISCHARGE WITHIN THE NEXT DAY OR SO.
--- NOTE | 2025-04-08 15:11 | NUR ---
Spiritual Care Visit. Pt. is awake and welcomes my visit. Pt. is pleasant but looks tired. Pt. verbalized that his dialysis makes him drowsy. Facilitated an u[date. Pt. verbalizes that he is feeling better than the day before. The Pt. displays evidence of being encouraged by the visit. Prayed for the Pt. Pt. verbalized gratitude for the spiritual care visit.
--- NOTE | 2025-04-08 17:06 | NUR ---
SHIFT SUMMARY: PATIENT IS ALERT AND ORIENTED X2, TO SELF & DAUGHTER. PATIENT ON TELE SHOWING SINUS RYTHM 1ST DEGREE HEART BLOCK WELL, IN 70'S. SATTING >92% ON ROOM AIR,OCASSIONALY PLACED ON 1 LITER WHILE RESTING DUE TO DESATTING INTO 80'S. PATIENT HAD DIALYSIS TODAY AND PER PATIENT REPORT ON LITER WAS TAKEN OFF,SEE THEIR NOTES FOR MORE INFORMATION. CARE MANGER WORKED WITH DAUGHTER AND PATIENT IS SET UP TO DISCHARE WITH DAUGHTER TO [place]. CARDIOLOGY WAS CONSULTED,SEE PREVIOUS NOTES FOR MORE INFORMATION. HEPARIN DRIP WAS TURNED DOWN TO 11U/KG. PATIENT DID VOID IN A URINAL TODAY, URINE DARK YELLOW,ENCOURAGED FLUIDS THROUGHOUT THE SHIFT. WOUND CARE WAS DONE AND BEDBATH DONE TODAY. PATIENT CURRENTLY WATHCING TV,CALL LIGHT WITHIN REACH, BED IN LOWEST LOCKED POSITION & STATING NOTHING ELSE IS NEEDED AT THIS TIME.
[2025-04-08] MEDS ORDERED: Clarify Drug Order XX ONE (23:55)
[2025-04-09] VITALS (7 sets, daily range): BP systolic 102–138; BP diastolic 60–86
[2025-04-09 03:28] LABS: Hematocrit 26.8 % (37.0-53.0); Hemoglobin 8.5 g/dL (13.5-17.5); Platelet Count 158 K/mm3 (150-400)
[2025-04-09 03:55] LABS: Albumin, Blood 2.5 g/dL (3.4-5.0); Anion Gap 9 mmol/L (3-11); Blood Urea Nitrogen 30 mg/dL (8-24); CO2, Blood 33 mmol/L (21-32); Calcium, Blood 9.0 mg/dL (8.5-10.1); Chloride, Blood 99 mmol/L (98-108); Creatinine, Blood 5.27 mg/dL (0.60-1.20); Glucose, Blood 104 mg/dL (70-99); Magnesium, Blood 2.0 mg/dL (1.6-2.4); Phosphorus, Blood 3.2 mg/dL (2.5-4.9); Potassium, Blood 3.8 mmol/L (3.5-5.5); Sodium, Blood 137 mmol/L (136-145)
--- NOTE | 2025-04-09 05:08 | NUR ---
SHIFT SUMMARY PATIENT A/O TO SELF AND PLACE INITIALLY. DID NOT SLEEP WELL. CONFUSION SEEMED TO INCREASE NIGHT WENT ON. NO AGITATION/IRRITABILITY. VERY PLEASANT. PATIENT INSISTENT ON NOT GETTING ANY MORE LAB DRAWS TODAY. DISCUSSED WITH PATIENT ABOUT REASON FOR LAB DRAW TO MONITOR PTT FOR HEPARIN. PATIENT STATED THAT HE UNDERSTOOD THE MEDICATION WILL HELP WITH HIS CONDITION RELATED TO HIS HEART, BUT ULTIMATELY IS DECIDING TO REFUSE BLOOD DRAWS AT THIS POINT. DISCUSSED WITH PHARMACIST ABOUT PUSHING LAB DRAW PTT OUT UNTIL DAY SHIFT PROVIDER ROUNDS. REVIEWED PROVIDER NOTES, LAST NOTE BY HOSPITALIST STATES TO CONTINUE HEPARIN GTT ON 04/08. PHARMACIST ONLY ABLE TO EXTEND LAB DRAW UNTIL 0700. WILL CONTINUE TO EDUCATE PATIENT ON IMPORTANCE OF PLAN OF CARE AND BENEFITS/RISKS. OUTCOME - TBD. NO OTHER SIGNIFICANT EVENTS OVERNIGHT. PATIENT DID AMBULATE TO RR 3 TIMES DURING SHIFT WITH WALKER AND DID WELL WITH SBA. CALL LIGHT IN REACH AND BED ALARM ON.
--- NOTE | 2025-04-09 07:24 | NUR ---
ASSUMPTION NOTE: THIS RN TO ASSUME CARE OF PATIENT. PATIENT ASKED TO GO TO THE REST ROOM. FRONT WHEELED WALKER & GAIT BELT USED PATIENT AMBULATED TO RESTROOM. NO COMPLAINTS WHILE UP. PAITENT WALKED BACK TO BED & VITAL SIGNS STABLE. PATIENT AWAITING BREAKFAST,CALL LIGHT WITHIN REACH, BED IN LOWEST LOCKED POSIITON.
--- NOTE | 2025-04-09 08:35 | NUR ---
MD CONTACTED: THIS RN CALLED MD REGARDING PHARMACY WANTING TO STOP HEPARIN THIS MORNING AT 0800 MELISSA REFUSED LAST NIGHT'S DRAW AND THIS MORNINGS.THIS RN EDUCATED PATIENT THE PURPOSE OF THE HEPARIN AND WHY WE NEED BLOOD TO BE ABLE TO MAANGE THE MEDICATION FOR IT TO BE IN A THERAPEUTIC RANGE. THIS RN NOTIFIED MD REGARDING PATIENT REFUSING AND PHARMACY WANTING TO KNOW IF WE CAN BRIDGE TO ORAL AND STOP HEPARIN THEY AREN'T ABLE TO MANAGE. MD GAVE VERBAL ORDER TO EDUCATE MELISSA AGAIN AND TRY TO CALL HIS DAUGHTER AND SEE IF SHE IS ABLE TO HELP TALKING TO THE PATIENT REGARDING THE BLOOD DRAW & THE MEDCIATION. THIS RN TALKED WITH MELISSA ONCE AGAIN AND SWATI REFUSED HE STATED "HE FEELS LIKE A PIN CUSHION AND HE'S OVER IT". ELIZABETHGRAYSON IS CURRENTLY WORKING WITH PHYSICAL THERAPY & THIS RN TO CALL HIS DAUGHTER.
--- NOTE | 2025-04-09 10:16 | NUR ---
MD ROUNDED: MD ROUNDED AND SPOKE WITH PATIENT AND CALLED HIS DAUGHTER WELL WITH AN UPDATE. HOME MEDSICATIONS WERE RESTARTED AND HEPARIN WAS STOPPED. PHARMACY WAS CALLED WITH THAT. MAGO TO START HOME MEDICATIONS AND METOPROLOL AND TO MONITOR FOR A FEW HOURS TO SEE HOW HE TOLERATES IT AND POSSIBLY GO HOME LATER THIS AFTERNOON.
[2025-04-09 13:35] LABS: HEPATITIS A ANTIBODY, IGM Negative (Negative); HEPATITIS C AB CIA INTERP Negative (Negative); HEPATITIS C ANTIBODY CIA INDEX <0.02 IV
--- NOTE | 2025-04-09 13:35 | NUR ---
UPDATE: PATIENT DAUGHTER IN ROOM COMPLAINED THAT THE PATIENT STATED "HE WAS FEELING SHORT OF BREATH AND NOT ABLE TO CATCH HIS BREATH AFTER WORKING WITH OT". THIS RN ASSESSED PATIENT, O2 SAT AT 98% ON ROOM AIR, MAGO SAT UP AND STATED "SHE WAS MAKING ME MOVE AROUND ALOT AND IT JUST TOOK ME A MINUTE TO CATCH MY BREATH & I FELT SHORT OF BREATH FOR A MINUTE". AFTER BEING SAT UP MAGO STATED "I FEEL BETTER AND LIKE I CAUGHT MY BREATH NOW". THIS RN CALLED MD TO NOTIFY AND A CHEST X-RAY WAS ORDERED, PENDING RESULTS. PATIENT IS STILL LOOKING AT GOING HOME TODAY WELL.
[2025-04-09] MEDS ORDERED: METO25ER PO (14:55)
[2025-04-09] MEDS ORDERED: [UNRECOGNIZED DRUG - CODE] PO (14:56)
[2025-04-09] MEDS ORDERED: DOCU100 PO (14:56)
[2025-04-09] MEDS ORDERED: FERSU300 PO (14:57)
--- NOTE | 2025-04-09 17:20 | NUR ---
SHIFT SUMMARY: PATIENT IS ALERT AND ORIENTED X2-3 THROUGHOUT THE SHIFT, KNOWS PERSON,SELF & OCCASIONALLY PLACE. SATTING >92% ON ROOM AIR,REPORTED FEELING SHORT OF BREATH WITH EXERTION THROUGHOUT THE SHIFT,SEE PREVIOUS NOTES FOR MORE INFORMATION. ANOTHER CHEST X-RAY WAS DONE,SEE CHART FOR RESULTS. ON TELE SHOWING SINUS WITH RATE BETWEEN 60-80'S. PATIENT WORKED WITH PHYSICAL THERAPY & OCCUPATIONAL THERAPY TODAY. PATIENT AGREEABLE TO STAYING ANOTHER NIGHT AND TO HAVE DIALYSIS [place]. WOUND CARE WAS DONE TODAY & PATIENT AND DAUGHTER GIVEN EDUCATION REGARDING NEW MEDICATIONS & INFORMATION ABOUT PRESSURE INJURY. PATIENT SITTING UP FOR DINNER,CALL LIGHT WITHIN REACH & STATING NOTHING ELSE IS NEEDED AT THIS TIME.
[2025-04-09] MEDS ORDERED: Timolol 0.5% Opth Soln 5 ML BOTHEYES SCH (21:00)
[2025-04-10] VITALS (16 sets, daily range): BP systolic 93–126; BP diastolic 58–79
[2025-04-10 03:57] LABS: Hematocrit 28.5 % (37.0-53.0); Hemoglobin 8.9 g/dL (13.5-17.5)
[2025-04-10 04:15] LABS: Albumin, Blood 2.5 g/dL (3.4-5.0); Anion Gap 9 mmol/L (3-11); Blood Urea Nitrogen 49 mg/dL (8-24); CO2, Blood 31 mmol/L (21-32); Calcium, Blood 9.3 mg/dL (8.5-10.1); Chloride, Blood 100 mmol/L (98-108); Creatinine, Blood 7.67 mg/dL (0.60-1.20); Glucose, Blood 111 mg/dL (70-99); Magnesium, Blood 2.0 mg/dL (1.6-2.4); Phosphorus, Blood 4.4 mg/dL (2.5-4.9); Potassium, Blood 4.1 mmol/L (3.5-5.5); Sodium, Blood 136 mmol/L (136-145)
--- NOTE | 2025-04-10 05:34 | NUR ---
SHIFT SUMMARY ALERT AND ORIENTED TO SELF AND PLACE. PERIODS OF DISORIENTATION, BUT EASILY REORIENTED. PATIENT CALM, PLEASANT, AND COOPERATIVE WITH ALL CARE. TRAZADONE HELPED WITH SLEEP TONIGHT AND PATIENT WAS ABLE TO REST MORE CONSISTENTLY. AMBULATED TO RR WITH WALKER AND SBA. NO PAIN. C/O SOB WHILE AT REST, PRN O2 @ 1-2L PROVIDED FOR COMFORT. VSS. NO ACUTE EVENTS OVERNIGHT. CALL LIGHT IN REACH, BED ALARM IN PLACE. PLAN OF CARE ONGOING.
--- NOTE | 2025-04-10 08:30 | NUR ---
care assumption Pt alert, answers questions appropriately. Sp02>90% on 1l nc. Telemetry shows nsr w/ 1st degree, hr 60's. bp soft. Denies pain. Down to dialysis at this time.
--- NOTE | 2025-04-10 11:42 | NUR ---
UPDATE TELEMETRY CALLED TO NOTIFY PT W/ CONSISTENT WAP, HR 40'S-50'S, LOW OF 36. PT ASYMPTOMATIC. CALL PLACED TO MD GUTIERREZ TO NOTIFY. MD GUTIERREZ W/ DC ORDERS FOR METOPROLOL.
--- NOTE | 2025-04-10 13:31 | NUR ---
update PT C/O OF NAUSEA. PRIOR TO ADMINISTERING ZOFRAN, CHECKED W/ TELEMETRY TO MEASURE QTC. QTC WAS 600. RETURNED ZOFRAN TO [facility]. NOTIFIED. MD GUTIERREZ W/ ORDERS FOR EKG TO CONFIRM, SEE EKG IN CHART.
--- NOTE | 2025-04-10 13:57 | NUR ---
Spiritual Care Visit. Pt. is somnolent, and daughter is at bedside quietly verbalizign that he stay asleep. Daughter verbalizes an expectation that the Pt. will be discharged home. This sheet rock hanger dimmed the lights in the room at the daughter's request. Daughter verbalize gratitude fo rthe spiritula care visit.
--- NOTE | 2025-04-10 15:50 | NUR ---
discharge summary Pt a&ox4. HOME 02 EVAL, SEE RESULTS. PORTABLE 02 AT BEDSIDE, DELIVERED BY [facility]. TELEMETRY SHOWS WAP, HR MOSTLY 50'S. UPDATED QTC OF 5.2. DENIES PAIN. MD NIEVES IW ORDERS TO FAX ORDER TO DIALYSIS CLINIC IN [place] TO UPDATE FROM 2 DAYS/WEEK TO 3 DAYS/WEEK DIALYSIS. MD GUTIERREZ IN ROOM TO CONFIRM DISCHARGE INSTRUCTIONS. DISCHARGE PAPER WORK REVIEWED W/ PT AND DAUGHTER. MEDICATIONS FAXED PER REQUEST TO [facility]. IVS REMOVED. TELEMETRY REMOVED. PT WHEELED W/ ALL PERSONAL BELONGINGS TO PRIVATE VEHICLE.
== END 2025-04-10 15:43 | disposition home health service (06) | DRG 280 ==
LOC: ER 21:05 → ERHOLD 21:06 → PCU 21:06
PROVIDERS: Emergency Medicine; Internal Medicine; Internal Medicine Nephrology; ADMIT Student in an Organized Health Care Education/Training Program
PROC: 5A1D70Z Performance of Urinary Filtration, Intermittent, Less than 6 Hours Per Day (ICD-10-PCS; principal; 2025-04-08)
DX: I50.21 Acute systolic (congestive) heart failure (principal); N18.6 End stage renal disease; I21.A1 Myocardial infarction type 2; I48.92 Unspecified atrial flutter; I42.0 Dilated cardiomyopathy; I31.39 Other pericardial effusion (noninflammatory); N25.81 Secondary hyperparathyroidism of renal origin; E87.1 Hypo-osmolality and hyponatremia; I48.0 Paroxysmal atrial fibrillation; D63.1 Anemia in chronic kidney disease; D50.9 Iron deficiency anemia, unspecified; I08.0 Rheumatic disorders of both mitral and aortic valves; K21.9 Gastro-esophageal reflux disease without esophagitis; I95.9 Hypotension, unspecified; E88.09 Other disorders of plasma-protein metabolism, not elsewhere classified; I25.10 Atherosclerotic heart disease of native coronary artery without angina pectoris; I44.0 Atrioventricular block, first degree; G31.84 Mild cognitive impairment of uncertain or unknown etiology; I27.20 Pulmonary hypertension, unspecified; Z99.2 Dependence on renal dialysis; Z86.73 Personal history of transient ischemic attack (TIA), and cerebral infarction without residual deficits; Z88.8 Allergy status to other drugs, medicaments and biological substances; Z88.5 Allergy status to narcotic agent; Z79.02 Long term (current) use of antithrombotics/antiplatelets; Z87.891 Personal history of nicotine dependence; Z79.01 Long term (current) use of anticoagulants
CPT/HCPCS: 36415; 71045; 71046; 76705; 80053; 80069; 80074; 82607; 82728; 82746; 82947; 83540; 83550; 83735; 83880; 84484; 85014; 85018; 85025; 85049; 85520; 85610; 85730; 93005; 93010; 94761; 94762; 96365; 96366; 96367; 96372; 97110; 97116; 97161; 97165; 97530; 97535; 99285-25; A9270; C8929; G0378; J0696; J0881; J1644; Q9957